=== PATIENT | male | born 1955 | race Caucasian/White ===

== ENCOUNTER 2017-12-05 13:54 | Inpatient (IN) | payer OTHER ==
[2017-12-05] VITALS (13 sets, daily range): BP systolic 84–134; BP diastolic 66–121
[~2017-12-05] VITALS: Ht 182.9 cm; Wt 77.5 kg
--- NOTE | ~2017-12-05 | HC ---
[facility] [place] [address] CONSULTATION Name: MIRELADAMION Room #: [facility] IN M.R.#: [id number] Admission: 12/05/17 Attend Phys: Daniel Street MD Discharge: 12/15/17 Date of : 57 Report #: [id number] THIS REPORT FOR: //name// CC: Daniel Saul DATE OF SERVICE: 12/06/2017 HISTORY OF PRESENT ILLNESS: The patient is a 62-year-old male who is a senior care resident, apparently had an aspiration and then was unresponsive. He is currently intubated and sedated in the ICU. A CT scan of the abdomen and pelvis was performed yesterday on admission, which showed high grade small-bowel obstruction in the right lower quadrant involving the mid to distal ileum, bilateral lower lobe atelectasis left greater than right, small left pleural effusion was noted. The patient is hypotensive at this time. He is again intubated and sedated. He has an oral gastric tube that shows bilious type material, but some dark material as well, which is the reason for GI consultation for possible upper GI bleed. His admit hemoglobin was 14.8, hemoglobin today is 12.6. He has not had a bowel movement per nursing. He is on a Protonix drip at this time. No family members are available currently. He is currently on pressure support. PAST MEDICAL HISTORY: Schizophrenia bipolar. ALLERGIES: LITHIUM, SEROQUEL and TETRAHYDROZOLINE. REVIEW OF SYSTEMS: Unobtainable. SOCIAL HISTORY: Unobtainable. FAMILY HISTORY: Unobtainable. CURRENT MEDICATIONS: Protonix drip, Zosyn, propofol, norepinephrine, Zofran p.r.n., morphine p.r.n., insulin sliding scale, IV fluids. PHYSICAL EXAMINATION: VITAL SIGNS: Temperature is 97.2, pulse 96, blood pressure 91/73, respiratory rate 20. HEENT: The patient is sedated, intubated, OG tube is in place. There is a bilious type material within the OG tube. Some dark material is also there. There was no evidence of bright red blood. Oropharynx is clear other than endotracheal tube and OG in place. CARDIOVASCULAR: Regular rate. CHEST: With decreased breath sounds anteriorly bilaterally. ABDOMEN: Soft. Few bowel sounds noted. Nondistended. [facility] [address] [address] CONSULTATION Name: DAMION DIETZ Room #: 237-P [facility] IN M.R.#: [id number] Admission: 12/05/17 Attend Phys: Daniel Street MD Discharge: 12/15/17 Date of : 57 Report #: [id number] EXTREMITIES: No cyanosis, clubbing or edema. LABORATORY DATA: Sodium 137, potassium 4.6, chloride 107, bicarbonate 21, BUN 38, creatinine 2.0, AST is 21, lipase 63, total bilirubin is 1.3, magnesium 1.6, calcium 7.7, alkaline phosphatase 41, ALT is 15, total protein 6.2, albumin 2.7, lactic acid level 1.7, yesterday was 4.2. INR 1.1. WBC 14.3, hemoglobin 12.6, platelet count is 121. ASSESSMENT AND PLAN: 1. Coffee ground material per OG tube. There has been a drop in his hemoglobin from admission. There has been no history here of melanotic stools or bright red blood per rectum. The OG aspirate appears to be clearing at this time. May need to consider upper endoscopy in the near future for further evaluation. In the meantime, recommend continuing PPI drip and monitoring hemoglobin. Currently, the patient remains hypotensive; however, this may be secondary to sepsis. 2. Aspiration pneumonia, currently on a ventilator and sedated. He is on IV antibiotics. 3. Elevated liver function tests. We will need to continue to monitor. Thank you for allowing me to participate in his care. <ELECTRONICALLY SIGNED> By: Bennie Chatman MD 12/15/17 0922 1328 1742 Bennie Chatman MD /nt
--- NOTE | ~2017-12-05 | HC ---
[facility] [place] [address] CONSULTATION Name: MIRELADAMION Room #: [facility] IN M.R.#: [id number] Admission: 12/05/17 Attend Phys: Daniel Street MD Discharge: 12/15/17 Date of : 57 Report #: [id number] THIS REPORT FOR: //name// CC: Daniel Saul DATE OF SERVICE: 12/08/2017 CONSULTATION: Infectious Diseases. DATE OF CONSULTATION: 12/08/2017 HISTORY OF PRESENT ILLNESS: The patient is a 62-year-old white male who lives in a snf, was admitted acutely because of hematemesis and then depressed mental status. The patient in the ER was thought to be incapable of protecting his airway and was intubated. Workup demonstrated elevated white count, lactate, creatinine and the patient became hypotensive. He was stabilized and transferred to the ICU. Infectious Disease consultation was requested with concerns about aspiration pneumonia. The patient is a long-term snf resident because of mental illness. He has been diagnosed as bipolar and psychotic. Otherwise his medical condition is fairly stable. ALLERGIES: Chart notes allergies to LITHIUM and SEROQUEL. MEDICATION RECONCILIATION: Current medications include vancomycin 1 gram q.8, chlorhexidine to mucous membranes b.i.d., fentanyl 50 mcg q.1h. IV p.r.n., midazolam 1 mg q.1h. p.r.n., lorazepam 1 mg q.1h. p.r.n., sliding scale insulin, pantoprazole 80 mg q.10 hours IV, Zosyn 3.375 grams IV every 6 hours, propofol IV titrate as needed, glucagon as needed, norepinephrine drip as needed. SOCIAL HISTORY: As noted, the patient is a long-term snf resident. I have no history of tobacco, alcohol nor drugs. The chart lists his marital status as single. There is a sister who has been acting his DPOA, who states the patient is a full code and normally is fairly functional at the snf level. REVIEW OF SYSTEMS: Unavailable as the patient is sedated on a ventilator. PHYSICAL EXAMINATION: GENERAL: The patient appears his stated age, sedated, comfortable, not in any distress. VITAL SIGNS: Show maximum temperature 100.4. Minimum blood pressure was 81/61. The patient now is normotensive without pressors according to the nurse, on sedation medications. [facility] [address] [place] [address] CONSULTATION Name: DAMION DIETZ Room #: 237-P [facility] IN [facility].#: [id number] Admission: 12/05/17 Attend Phys: Daniel Street MD Discharge: 12/15/17 Date of : 57 Report #: [id number] GENERAL: The patient arouses and is cooperative. SKIN: Shows no rash, lesion or exanthem. ENT: Demonstrates endotracheal and orogastric tubes in position. NECK: Supple. CARDIOVASCULAR: Heart sounds normal. LUNGS: Clear. ABDOMEN: Belly soft, not tender. GENITOURINARY: The penis is somewhat swollen. There is a Bartlett catheter present. EXTREMITIES: Unremarkable without any edema. LABORATORY DATA: White count is 15,000, hemoglobin has gone from 14.2-10.3, hematocrit 29.8, platelets have gone from 129,000 to 85,000. Electrolytes are normal. BUN 21, creatinine has gone from 2.3-0.9. A sputum culture is growing Klebsiella. Culture of the nares for MRSA is positive. Blood cultures x 2 are so far negative. Radiology reports chest x-ray demonstrates bilateral lower lobe infiltrates. CT scan was interpreted as a right lower quadrant high grade small-bowel obstruction. The nurses think that the patient may have had a history of hernia surgery. I cannot definitively see surgical scars on the belly, but this may be a factor in his bowel issues. At this time, the patient has bowel obstruction, nausea, vomiting with hematemesis to the point of a 4 gram hemoglobin drop. He has infiltrates with depressed mental status, could very well have aspirated. At this point, I concur with Zosyn for aspiration pneumonia in a snf setting. With MRSA positive in the nares, vancomycin would be appropriate as well. They can use Bactroban on the nares to try to decolonize this. The patient looks like he is doing well in terms of hemodynamics and respiratory parameters and hopefully can be extubated soon. I appreciate the opportunity of input in the care of the patient. Dr. Simeon will return on Friday for additional followup. Thank you for this consultation. <ELECTRONICALLY SIGNED> By: Stephen Menendez MD 12/27/17 1418 0910 1134 Stephen Menendez MD /nt
--- NOTE | ~2017-12-05 | EKG ---
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1955 Requested By: Michael Castañeda Order Number: [id number] MD: Sergio Majano Measurements Intervals [place] Rate: 116 P: 23 MS: 114 QRS: -18 QRSD: 88 T: 118 QT: 337 QTc: 469 Interpretive Statements Sinus tachycardia Nonspecific ST segment abnormality Cannot rule out Anterior infarct, old No previous ECG available for comparison Electronically Signed On 12-06-2017 13:05:05 IN [employer] by Sergio Majano [email or web address] <ELECTRONICALLY SIGNED> By: Sergio Majano MD, [facility] 12/06/17 1305 25 25 Sergio Majano MD, [facility] /EPI
--- NOTE | ~2017-12-05 | HC ---
[facility] [place] [address] CONSULTATION Name: DAMION DIETZ Room #: 237-P [facility] IN M.R.#: [id number] Admission: 12/05/17 Attend Phys: Daniel Street MD Discharge: Date of : 57 Report #: [id number] THIS REPORT FOR: //name// CC: Daniel Saul TYPE OF REPORT: Pulmonary consultation. PRIMARY CARE PHYSICIAN: Unknown. REFERRAL PHYSICIAN: Daniel Street M.D. REASON FOR REFERRAL: Acute respiratory failure. HISTORY OF PRESENT ILLNESS: The patient is a 62-year-old white male who was brought to the Emergency Room after being found unresponsive. A pulmonary consultation was requested. The patient apparently has a history of GI disorder in the past. The patient also has a history of bipolar disorder and schizophrenia according to records. Prior to presentation, the family notes that he has had an emesis leading to progressive respiratory distress and unresponsive state. 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 The patient is a resident of [facility]. While in the Emergency Room, the patient was also found to be hypotensive and was found to have coffee-ground emesis after following intubation. PAST MEDICAL HISTORY: Incomplete but history suggests bipolar disorder; schizophrenia; GI disorder, not specified and past history of small-bowel obstruction. PAST SURGICAL HISTORY: Incomplete. ALLERGIES: LITHIUM, SEROQUEL and TETRAHYDROZOLINE, reactions unspecified. MEDICATIONS: His reported home medications include clonazepam, Ditropan, Protonix, MiraLax, Flomax, vitamin supplements, artificial tears, BuSpar, Cogentin, clozapine, Lumigan eyedrops, Reglan and trazodone. FAMILY HISTORY: Unknown. SOCIAL HISTORY: Resides at the custodial at [facility]. [facility] [address] [place] [address] CONSULTATION Name: DAMION DIETZ Room #: 237-P [facility] IN [facility]#: [id number] Admission: 12/05/17 Attend Phys: Daniel Street MD Discharge: Date of : 57 Report #: [id number] REVIEW OF SYSTEMS: Deferred as the patient is intubated. PHYSICAL EXAMINATION: GENERAL: The patient had been more arousable, following intubation but currently, he is sedated. VITAL SIGNS: Blood pressure currently is 120/86 mmHg, saturation 100%, temperature 97 degrees Fahrenheit, pulse is 95 and respiratory rate is 26. HEENT: Normocephalic and atraumatic. He is orally intubated. NECK: Supple, without lymphadenopathy or thyromegaly. CHEST: Breath sounds are fair. Scattered crackles in the bases. No wheezes. CARDIOVASCULAR: Normal S1 and S2. No murmurs or gallop. Pulses are 2+/4+ bilaterally. ABDOMEN: Moderately distended. Soft. No masses felt. GENITOURINARY: Deferred. RECTAL: Deferred. EXTREMITIES: There is no edema, cyanosis or clubbing. RADIOLOGICAL DATA: CT head was grossly unremarkable. There is questionable cerebellar pontine angle mass though not confirmed. CT abdomen and pelvis shows high grade small-bowel obstruction in the right lower quadrant involving the [id number] ileum, bibasilar atelectasis, left greater than the right, small left-sided pleural effusion. Follow CT head shows no evidence of right cerebellopontine angle mass that was previously suggested. EKG shows no acute ischemic changes. Abdomen shows moderate small bowel ileus. Electrolytes: Sodium 137, potassium 4.6, chloride 107, CO2 is 21, BUN is 38 and creatinine is 2.0. Liver enzymes are mildly abnormal. WBC 14,000; hemoglobin 12.6 and platelets are normal. No evidence of bandemia. Albumin 2.7. Arterial blood gas revealed pH 7.32, pCO2 of 37, pO2 365 on admission and FiO2 100%. IMPRESSION: 1. Acute hypoxic respiratory failure in this 62-year-old white male who had apparently multiple medical problems. There is a suggestion of possible aspiration. He was also found to be unresponsive. 2. Encephalopathy, likely toxic and metabolic, possible hypoxic brain injury. 3. Small-bowel obstruction, high grade, Surgery and Gastrointestinal has been consulted. 4. History of gastrointestinal disorder including history of bowel obstructions. Obtaining all records will be helpful. 5. History of bipolar disorder and schizophrenia. 6. Renal insufficiency. Presumed acute though cannot rule out chronic renal insufficiency. Etiology is likely related to acute tubular necrosis due to hypotension. 7. Severe protein-calorie malnutrition with an albumin of 2.7. 8. Severe sepsis, hypotension along with metabolic acidosis, leukocytosis with recent projectile vomiting, rule out aspiration, rule out intra-abdominal infections. [facility] [address] [place] [address] CONSULTATION Name: DAMION DIETZ Room #: 237-P [facility] IN M.R.#: [id number] Admission: 12/05/17 Attend Phys: Daniel Street MD Discharge: Date of : 57 Report #: [id number] 9. Questionable upper gastrointestinal bleed with coffee-ground emesis. . RECOMMENDATIONS: We will continue mechanical ventilation, wean O2 for saturation 90%. We will cover possible aspiration pneumonia given recent emesis. The patient has been evaluated by Surgery and GI regarding small-bowel obstruction. DVT and GI prophylaxis is recommended. Nutritional support once clinically stable should be addressed. Thank you for this consultation. <ELECTRONICALLY SIGNED> By: Michael Castañeda MD 12/07/17 1526 1512 2140 Michael Castañeda MD /nt
--- NOTE | ~2017-12-05 | EKG ---
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
[2017-12-05 14:28] LABS: ABSOLUTE NEUTROPHILS 16.7 thou/uL (1.4-8.2); BASOPHILS 0.2 % (0.0-2.0); HEMATOCRIT 44.6 % (42.0-52.0); HEMOGLOBIN 14.8 gm/dL (14.0-18.0); LYMPHOCYTES 5.1 % (24.0-44.0); MCH 29.6 pg (26.0-34.0); MCHC 33.1 g/dL (28.0-37.0); MCV 89.3 fL (80.0-100.0); MONOCYTES 3.1 % (1.0-8.0); PLATELET COUNT 174 thou/uL (150-400); POLYS 91.6 % (36.0-66.0); RBC 4.99 mil/uL (4.50-6.00); RDW 14.3 % (10.5-14.5); WBC 18.2 thou/uL (4.0-11.0)
[2017-12-05 14:31] LABS: BE(vivo) -6.4 mmol/L (-2 to +3); HCO3 18.9 mmol/L (22.0-26.0); PCO2 37.2 mmHg (35.0-45.0); PO2 367.2 mmHg (80.0-100.0); pH 7.324 (7.360-7.450); sO2 99.8 % (92.0-98.0)
[2017-12-05 14:34] LABS: CALCIUM 9.5 mg/dL (8.5-10.1); CREATININE 2.3 mg/dL (0.7-1.3); POTASSIUM 4.6 mmol/L (3.5-5.1)
[2017-12-05 14:37] LABS: APTT 25.7 Seconds (24.5-32.8); INR 1.1; PROTIME 10.9 Seconds (9.3-11.4)
[2017-12-05 14:41] LABS: DIRECT BILIRUBIN 0.1 mg/dL (<0.1-0.3); TOTAL BILIRUBIN 0.8 mg/dL (<0.1-1.0); TOTAL PROTEIN 8.3 g/dL (6.4-8.2)
[2017-12-05 16:26] LABS: HEMATOCRIT 40.3 % (42.0-52.0); HEMOGLOBIN 13.1 gm/dL (14.0-18.0)
[2017-12-05] MEDS ORDERED: CLONAZEPAM 0.50.5 M1 PO (16:37)
[2017-12-05] MEDS ORDERED: DITROPAN XL10 M1 PO (16:37)
[2017-12-05] MEDS ORDERED: PROTONIX40 M4 PO (16:38)
[2017-12-05] MEDS ORDERED: FLOMAX0.4 MG PO (16:38)
[2017-12-05] MEDS ORDERED: MIRALAX17 GM PO (16:38)
[2017-12-05] MEDS ORDERED: VITAMIN D3400 UNIT PO (16:38)
[2017-12-05] MEDS ORDERED: ARTIFICIAL TEA1 EACH (16:39)
[2017-12-05] MEDS ORDERED: GLYCOPYRROLATE 22 M1 PO (16:39)
[2017-12-05] MEDS ORDERED: BUSPIRONE HCL10 MG PO (16:39)
[2017-12-05] MEDS ORDERED: BENZTROPINE ME0.5 MG PO (16:40)
[2017-12-05] MEDS ORDERED: CLOZAPINE200 MG PO (16:40)
[2017-12-05] MEDS ORDERED: TRAZODONE 150150 M1 PO (16:41)
[2017-12-05] MEDS ORDERED: LUMIGAN2.5 M1 OP (16:41)
[2017-12-05] MEDS ORDERED: CLOZAPINE50 MG PO (16:41)
[2017-12-05] MEDS ORDERED: REGLAN 10 MG TA10 MG PO (16:41)
[2017-12-05 19:13] LABS: HEMATOCRIT 42.4 % (42.0-52.0); HEMOGLOBIN 14.2 gm/dL (14.0-18.0); MCH 29.9 pg (26.0-34.0); MCHC 33.6 g/dL (28.0-37.0); RBC 4.76 mil/uL (4.50-6.00); RDW 14.2 % (10.5-14.5); WBC 12.8 thou/uL (4.0-11.0)
[2017-12-05 19:22] LABS: CALCIUM 8.7 mg/dL (8.5-10.1); CREATININE 2.5 mg/dL (0.7-1.3)
[2017-12-05 19:27] LABS: BE(vivo) -4.2 mmol/L (-2 to +3); HCO3 20.5 mmol/L (22.0-26.0); PCO2 36.5 mmHg (35.0-45.0); PO2 86.2 mmHg (80.0-100.0); pH 7.367 (7.360-7.450); sO2 96.3 % (92.0-98.0)
[2017-12-05 20:59] LABS: URINE BILIRUBIN 1+ (Negative); URINE BLOOD 3+ (Negative); URINE CLARITY SL CLOUDY; URINE COLOR ORANGE; URINE GLUCOSE-RANDOM* NEGATIVE (Negative); URINE KETONES 1+ (Negative); URINE LEUKOCYTES 1+ (Negative); URINE NITRITE NEGATIVE (Negative); URINE PROTEIN (DIPSTICK) 2+ (Negative); URINE SPECIFIC GRAVITY >= 1.030 (1.005-1.035)
[2017-12-05 21:03] LABS: ICTOTEST (BILI CONFIRMATORY) Negative (Negative)
[2017-12-05 21:07] LABS: AMP/METHAMP Negative (Negative); BARBITURATES Negative (Negative); BENZODIAZEPINES Negative (Negative); COCAINE Negative (Negative); METHADONE Negative (Negative); OPIATES Negative (Negative); PCP Negative (Negative)
[2017-12-05 21:10] LABS: SQUAMOUS 4-10 Moderate /LPF (0-3)
[2017-12-05 21:11] LABS: AMORPHOUS URATES Moderate /LPF (None Seen); COARSE GRANULAR CASTS 0-3 Few /LPF (None Seen); FINE GRANULAR CASTS 4-10 Moderate /LPF (None Seen); HYALINE CASTS >10 Many /LPF (None Seen); URINE RBC 3-10 Few /HPF (0-2); URINE WBC 6-15 Few /HPF (0-5)
[2017-12-05 21:12] LABS: MUCUS 4-6 Moderate strn/LPF (None Seen)
[2017-12-06] VITALS (78 sets, daily range): BP systolic 77–135; BP diastolic 60–91
[2017-12-06 05:08] LABS: GLYCOHEMOGLOBIN (HGB A1C) 5.5 % (4.8-5.6)
[2017-12-06 05:40] LABS: HEMATOCRIT 37.5 % (42.0-52.0); HEMOGLOBIN 12.6 gm/dL (14.0-18.0); MCHC 33.6 g/dL (28.0-37.0); MCV 89.3 fL (80.0-100.0); RBC 4.2 mil/uL (4.50-6.00); RDW 14.6 % (10.5-14.5); WBC 14.3 thou/uL (4.0-11.0)
[2017-12-06 05:44] LABS: ALBUMIN 2.7 g/dL (3.4-5.0); CALCIUM 7.7 mg/dL (8.5-10.1); POTASSIUM 4.6 mmol/L (3.5-5.1); TOTAL BILIRUBIN 1.3 mg/dL (<0.1-1.0); TOTAL PROTEIN 6.2 g/dL (6.4-8.2)
[2017-12-06 18:40] LABS: CALCIUM 7.5 mg/dL (8.5-10.1); CREATININE 1.3 mg/dL (0.7-1.3)
[2017-12-07] VITALS (90 sets, daily range): BP systolic 108–148; BP diastolic 57–112
[2017-12-07 05:05] LABS: CALCIUM 7.8 mg/dL (8.5-10.1); MAGNESIUM 2.4 mg/dL (1.8-2.4); POTASSIUM 4.2 mmol/L (3.5-5.1)
[2017-12-07 05:10] LABS: HEMATOCRIT 29.8 % (42.0-52.0); MCH 30.6 pg (26.0-34.0); MCHC 34.5 g/dL (28.0-37.0); MCV 88.6 fL (80.0-100.0); RBC 3.36 mil/uL (4.50-6.00); RDW 14.7 % (10.5-14.5); WBC 15.6 thou/uL (4.0-11.0)
[2017-12-07 05:16] LABS: HEMOGLOBIN 10.3 gm/dL (14.0-18.0)
[2017-12-07 05:47] LABS: BE(vivo) -5.7 mmol/L (-2 to +3); HCO3 18.8 mmol/L (22.0-26.0); PCO2 33.5 mmHg (35.0-45.0); pH 7.367 (7.360-7.450); sO2 98.5 % (92.0-98.0)
[2017-12-07 16:17] LABS: CALCIUM 8.1 mg/dL (8.5-10.1); CREATININE 0.9 mg/dL (0.7-1.3); MAGNESIUM 2.3 mg/dL (1.8-2.4); POTASSIUM 4.2 mmol/L (3.5-5.1)
[2017-12-08] VITALS (85 sets, daily range): BP systolic 130–154; BP diastolic 74–114
[2017-12-08 05:33] LABS: HEMOGLOBIN 9.6 gm/dL (14.0-18.0); MCH 29.8 pg (26.0-34.0); MCV 90.3 fL (80.0-100.0); RBC 3.21 mil/uL (4.50-6.00); RDW 14.9 % (10.5-14.5); WBC 17.5 thou/uL (4.0-11.0)
[2017-12-08 05:51] LABS: ALBUMIN 2.1 g/dL (3.4-5.0); CREATININE 0.8 mg/dL (0.7-1.3); POTASSIUM 3.9 mmol/L (3.5-5.1); TOTAL BILIRUBIN 1.1 mg/dL (<0.1-1.0); TOTAL PROTEIN 5.8 g/dL (6.4-8.2)
[2017-12-08 06:00] LABS: BE(vivo) -6.4 mmol/L (-2 to +3); HCO3 18.6 mmol/L (22.0-26.0); PCO2 35.6 mmHg (35.0-45.0); PO2 150.4 mmHg (80.0-100.0); pH 7.337 (7.360-7.450); sO2 98.8 % (92.0-98.0)
[2017-12-09] VITALS (35 sets, daily range): BP systolic 132–160; BP diastolic 75–95
[2017-12-09 04:12] LABS: HEMATOCRIT 29.9 % (42.0-52.0); MCHC 33.6 g/dL (28.0-37.0); MCV 89.3 fL (80.0-100.0); RBC 3.35 mil/uL (4.50-6.00); RDW 14.4 % (10.5-14.5); WBC 20.3 thou/uL (4.0-11.0)
[2017-12-09 04:21] LABS: CREATININE 0.8 mg/dL (0.7-1.3); MAGNESIUM 1.8 mg/dL (1.8-2.4); PHOSPHORUS 2.8 mg/dL (2.5-4.9); POTASSIUM 3.8 mmol/L (3.5-5.1)
[2017-12-09 16:35] LABS: BE(vivo) -5.4 mmol/L (-2 to +3); HCO3 19.5 mmol/L (22.0-26.0); PCO2 36.1 mmHg (35.0-45.0); PO2 91.8 mmHg (80.0-100.0); pH 7.351 (7.360-7.450); sO2 96.7 % (92.0-98.0)
[2017-12-10] VITALS (22 sets, daily range): BP systolic 135–165; BP diastolic 85–98
[2017-12-10 04:37] LABS: CALCIUM 9.1 mg/dL (8.5-10.1); CREATININE 0.7 mg/dL (0.7-1.3); MAGNESIUM 1.7 mg/dL (1.8-2.4); PHOSPHORUS 2.8 mg/dL (2.5-4.9); POTASSIUM 3.3 mmol/L (3.5-5.1)
[2017-12-10 04:44] LABS: HEMATOCRIT 28.5 % (42.0-52.0); HEMOGLOBIN 9.5 gm/dL (14.0-18.0); MCH 29.7 pg (26.0-34.0); MCHC 33.4 g/dL (28.0-37.0); RBC 3.2 mil/uL (4.50-6.00); RDW 14.5 % (10.5-14.5); WBC 16.3 thou/uL (4.0-11.0)
[2017-12-10 05:18] LABS: BE(vivo) -4.5 mmol/L (-2 to +3); HCO3 20.3 mmol/L (22.0-26.0); PCO2 36.2 mmHg (35.0-45.0); PO2 90.2 mmHg (80.0-100.0); pH 7.366 (7.360-7.450); sO2 96.7 % (92.0-98.0)
[2017-12-10 10:02] LABS: BE(vivo) -3.9 mmol/L (-2 to +3); HCO3 20.1 mmol/L (22.0-26.0); PCO2 32.9 mmHg (35.0-45.0); PO2 90.6 mmHg (80.0-100.0); pH 7.404 (7.360-7.450)
[2017-12-10 11:47] LABS: POTASSIUM 3.7 mmol/L (3.5-5.1)
[2017-12-11] VITALS (26 sets, daily range): BP systolic 138–168; BP diastolic 81–111
[2017-12-11 02:55] LABS: CALCIUM 8.8 mg/dL (8.5-10.1); CREATININE 0.7 mg/dL (0.7-1.3); MAGNESIUM 1.7 mg/dL (1.8-2.4); PHOSPHORUS 2.8 mg/dL (2.5-4.9); POTASSIUM 3.2 mmol/L (3.5-5.1)
[2017-12-11 10:26] LABS: MAGNESIUM 2.2 mg/dL (1.8-2.4); POTASSIUM 3.7 mmol/L (3.5-5.1)
[2017-12-12] VITALS (27 sets, daily range): BP systolic 135–170; BP diastolic 78–105
[2017-12-12 05:20] LABS: CALCIUM 8.8 mg/dL (8.5-10.1); CREATININE 0.8 mg/dL (0.7-1.3); MAGNESIUM 1.9 mg/dL (1.8-2.4); PHOSPHORUS 3.1 mg/dL (2.5-4.9); POTASSIUM 3.4 mmol/L (3.5-5.1); TOTAL BILIRUBIN 2.3 mg/dL (<0.1-1.0); TOTAL PROTEIN 6.7 g/dL (6.4-8.2)
[2017-12-12 05:28] LABS: HEMATOCRIT 29.2 % (42.0-52.0); HEMOGLOBIN 9.9 gm/dL (14.0-18.0); MCH 29.9 pg (26.0-34.0); MCHC 34.1 g/dL (28.0-37.0); MCV 87.9 fL (80.0-100.0); RBC 3.32 mil/uL (4.50-6.00); WBC 17.3 thou/uL (4.0-11.0)
[2017-12-12 08:49] LABS: BE(vivo) 0.5 mmol/L (-2 to +3); HCO3 23.2 mmol/L (22.0-26.0); PCO2 31.6 mmHg (35.0-45.0); PO2 80.3 mmHg (80.0-100.0); pH 7.484 (7.360-7.450); sO2 96.7 % (92.0-98.0)
[2017-12-12 13:48] LABS: URINE BILIRUBIN NEGATIVE (Negative); URINE BLOOD 3+ (Negative); URINE CLARITY CLEAR; URINE COLOR YELLOW; URINE GLUCOSE-RANDOM* TRACE (Negative); URINE KETONES NEGATIVE (Negative); URINE LEUKOCYTES-REFLEX NEGATIVE (Negative); URINE NITRITE-REFLEX NEGATIVE (Negative); URINE PROTEIN (DIPSTICK) TRACE (Negative); URINE SPECIFIC GRAVITY <= 1.005 (1.005-1.035)
[2017-12-12 13:59] LABS: BACTERIA-REFLEX 1-9 Few /HPF (None Seen); CASTS None Seen /LPF (None Seen); CRYSTALS None Seen /LPF (None Seen); SQUAMOUS None Seen /LPF (0-3); URINE RBC >20 Many /HPF (0-2); URINE WBC-REFLEX 0-5 Rare /HPF (0-5)
[2017-12-13] VITALS (24 sets, daily range): BP systolic 125–169; BP diastolic 75–90
[2017-12-13 04:31] LABS: CALCIUM 8.7 mg/dL (8.5-10.1); CREATININE 0.8 mg/dL (0.7-1.3); MAGNESIUM 2.1 mg/dL (1.8-2.4); PHOSPHORUS 3.1 mg/dL (2.5-4.9); POTASSIUM 3.6 mmol/L (3.5-5.1)
[2017-12-13 04:34] LABS: ALBUMIN 1.8 g/dL (3.4-5.0); DIRECT BILIRUBIN 1.1 mg/dL (<0.1-0.3); TOTAL BILIRUBIN 1.8 mg/dL (<0.1-1.0); TOTAL PROTEIN 6.5 g/dL (6.4-8.2)
[2017-12-13 04:52] LABS: HEMATOCRIT 26.6 % (42.0-52.0); HEMOGLOBIN 9.1 gm/dL (14.0-18.0); MCH 29.8 pg (26.0-34.0); MCHC 34.1 g/dL (28.0-37.0); MCV 87.6 fL (80.0-100.0); RBC 3.03 mil/uL (4.50-6.00); RDW 14.7 % (10.5-14.5); WBC 14.8 thou/uL (4.0-11.0)
[2017-12-14] VITALS (25 sets, daily range): BP systolic 131–171; BP diastolic 70–107
[2017-12-14 04:40] LABS: HEMATOCRIT 25.8 % (42.0-52.0); HEMOGLOBIN 8.8 gm/dL (14.0-18.0); MCH 29.8 pg (26.0-34.0); MCV 87.5 fL (80.0-100.0); RBC 2.95 mil/uL (4.50-6.00); WBC 21.4 thou/uL (4.0-11.0)
[2017-12-14 04:46] LABS: CALCIUM 8.8 mg/dL (8.5-10.1); CREATININE 0.8 mg/dL (0.7-1.3); MAGNESIUM 2.3 mg/dL (1.8-2.4); PHOSPHORUS 3.2 mg/dL (2.5-4.9); POTASSIUM 4.1 mmol/L (3.5-5.1)
[2017-12-14 04:49] LABS: ALBUMIN 1.8 g/dL (3.4-5.0); DIRECT BILIRUBIN 2.2 mg/dL (<0.1-0.3); TOTAL BILIRUBIN 2.6 mg/dL (<0.1-1.0)
[2017-12-15] VITALS (10 sets, daily range): BP systolic 69–134; BP diastolic 33–97
== END 2017-12-15 04:35 | DRG 870 ==
LOC: ER 13:54 → ICU 14:48 → EROBS 14:48 → ICU 16:35
PROVIDERS: Hospitalist; Internal Medicine; Internal Medicine Pulmonary Disease; Nurse Practitioner; Specialist
PROC: 0BH17EZ Insertion of Endotracheal Airway into Trachea, Via Natural or Artificial Opening (ICD-10-PCS; principal; 2017-12-05)
PROC: 02HV33Z Insertion of Infusion Device into Superior Vena Cava, Percutaneous Approach (ICD-10-PCS; principal; 2017-12-05)
PROC: 5A1955Z Respiratory Ventilation, Greater than 96 Consecutive Hours (ICD-10-PCS; principal; 2017-12-05)
PROC: 0D9670Z Drainage of Stomach with Drainage Device, Via Natural or Artificial Opening (ICD-10-PCS; 2017-12-12)
PROC: 5A09357 Assistance with Respiratory Ventilation, Less than 24 Consecutive Hours, Continuous Positive Airway Pressure (ICD-10-PCS; 2017-12-14)
DX: A41.9 Sepsis, unspecified organism (principal); J69.0 Pneumonitis due to inhalation of food and vomit; J96.01 Acute respiratory failure with hypoxia; E43 Unspecified severe protein-calorie malnutrition; G92 Toxic encephalopathy; K92.2 Gastrointestinal hemorrhage, unspecified; K56.609 Unspecified intestinal obstruction, unspecified as to partial versus complete obstruction; N17.9 Acute kidney failure, unspecified; F31.9 Bipolar disorder, unspecified; R65.20 Severe sepsis without septic shock; I95.9 Hypotension, unspecified; F20.9 Schizophrenia, unspecified; D64.9 Anemia, unspecified; D69.6 Thrombocytopenia, unspecified; E87.6 Hypokalemia; Z88.8 Allergy status to other drugs, medicaments and biological substances; Z79.899 Other long term (current) drug therapy; Z68.23 Body mass index [BMI] 23.0-23.9, adult
CPT/HCPCS: 10078; 27000